=== PATIENT | female | born 1950 | race Caucasian/White ===

== ENCOUNTER 2018-08-19 17:09 | Emergency (ER) | payer MEDICAID ==
[2018-08-19] MEDS: ACETAMINOPHEN 325 MG TAB PO (18:25)
== END 2018-08-19 19:37 | disposition home or self-care (01) ==
LOC: FTE 17:09
DX: J32.9 Chronic sinusitis, unspecified (principal); I10 Essential (primary) hypertension; H11.31 Conjunctival hemorrhage, right eye; R51 Headache
CPT/HCPCS: 70450; 70480; 99284-25